=== PATIENT | male | born 1990 | race Caucasian/White ===

== ENCOUNTER 2016-09-19 10:08 | Emergency (ER) | payer OTHER ==
[~2016-09-19] VITALS: Ht 185.4 cm; Wt 90.7 kg
[2016-09-19 10:46] VITALS: BP 146/86
== END 2016-09-19 11:30 | disposition home or self-care (01) ==
LOC: ER 10:08
DX: S62.303A Unspecified fracture of third metacarpal bone, left hand, initial encounter for closed fracture (principal); V87.8XXA Person injured in other specified noncollision transport accidents involving motor vehicle (traffic), initial encounter; Y93.55 Activity, bike riding; Y99.8 Other external cause status; Y92.89 Other specified places as the place of occurrence of the external cause
CPT/HCPCS: 29125; 73130